=== PATIENT | female | born 1990 | race Caucasian/White ===

== ENCOUNTER 2020-04-16 12:07 | Emergency (ER) | payer OTHER ==
[~2020-04-16] VITALS: Ht 157.5 cm; Wt 54.4 kg
[2020-04-16] MEDS ORDERED: ADDERALL 20 MG20 MG PO (12:24)
[2020-04-16 12:42] LABS: URINE BLOOD NEGATIVE (Negative); URINE CLARITY CLEAR; URINE COLOR YELLOW; URINE GLUCOSE-RANDOM* NEGATIVE (Negative); URINE KETONES NEGATIVE (Negative); URINE NITRITE-REFLEX NEGATIVE (Negative); URINE PROTEIN (DIPSTICK) TRACE (Negative); URINE SPECIFIC GRAVITY 1.015 (1.005-1.035); URINE UROBILINOGEN 0.2 E.U./dl (0.2-1.0)
[2020-04-16 12:45] LABS: URINE LEUKOCYTES-REFLEX 1+ (Negative)
[2020-04-16 12:46] LABS: ICTOTEST (BILI CONFIRMATORY) Negative (Negative); URINE BILIRUBIN NEGATIVE (Negative)
[2020-04-16 13:01] LABS: CASTS None Seen /LPF (None Seen); CRYSTALS None Seen /LPF (None Seen); MUCUS 4-6 Moderate strn/LPF (None Seen); SQUAMOUS 4-10 Moderate /LPF (0-3)
[2020-04-16 13:02] LABS: BACTERIA-REFLEX 1-9 Few /HPF (None Seen); URINE RBC None Seen /HPF (0-2); URINE WBC-REFLEX 6-15 Few /HPF (0-5)
[2020-04-16 13:15] LABS: ABSOLUTE NEUTROPHILS 4.7 thou/uL (1.4-8.2); BASOPHILS 0.4 % (0.0-2.0); HEMATOCRIT 42.8 % (37.0-47.0); HEMOGLOBIN 14.4 gm/dL (12.0-15.0); LYMPHOCYTES 27.4 % (24.0-44.0); MCH 28.5 pg (26.0-34.0); MCHC 33.7 g/dL (28.0-37.0); MCV 84.7 fL (80.0-100.0); MONOCYTES 9.8 % (1.0-8.0); PLATELET COUNT 282 thou/uL (150-400); POLYS 61.4 % (36.0-66.0); RBC 5.06 mil/uL (4.20-5.00); RDW 12.7 % (10.5-14.5); WBC 7.7 thou/uL (4.0-11.0)
[2020-04-16 13:26] LABS: CALCIUM 8.6 mg/dL (8.5-10.1); POTASSIUM 3.7 mmol/L (3.5-5.1)
[2020-04-16 13:31] LABS: ALBUMIN 4.3 g/dL (3.4-5.0); DIRECT BILIRUBIN 0.1 mg/dL (<0.1-0.2); TOTAL BILIRUBIN 0.4 mg/dL (0.2-1.0); TOTAL PROTEIN 7.9 g/dL (6.4-8.2)
[2020-04-16] MEDS ORDERED: TRAMADOL 50 MG50 MG PO (16:06)
[2020-04-16] MEDS ORDERED: ONDANSETRON ODT8 MG PO (16:06)
[2020-04-16] MEDS ORDERED: NAPROSYN500 MG PO (16:06)
[2020-04-16 16:25] VITALS: BP 122/70
== END 2020-04-16 16:25 | disposition home or self-care (01) ==
LOC: ER 12:07
PROVIDERS: Emergency Medicine
DX: N83.202 Unspecified ovarian cyst, left side (principal); R10.31 Right lower quadrant pain; R42 Dizziness and giddiness; F17.210 Nicotine dependence, cigarettes, uncomplicated; Z90.49 Acquired absence of other specified parts of digestive tract; Z79.899 Other long term (current) drug therapy; Z88.1 Allergy status to other antibiotic agents; Z88.8 Allergy status to other drugs, medicaments and biological substances; Z88.2 Allergy status to sulfonamides

== ENCOUNTER 2020-05-11 04:31 | Emergency (ER) | payer OTHER ==
[~2020-05-11] VITALS: Ht 157.5 cm; Wt 54.4 kg
[~2020-05-11 04:31] MED LIST: ADDERALL 20 MG20 MG PO; NAPROSYN500 MG PO; ONDANSETRON ODT8 MG PO; TRAMADOL 50 MG50 MG PO
[2020-05-11 05:10] LABS: URINE BILIRUBIN NEGATIVE (Negative); URINE BLOOD 3+ (Negative); URINE CLARITY CLOUDY; URINE COLOR RED; URINE GLUCOSE-RANDOM* NEGATIVE (Negative); URINE KETONES NEGATIVE (Negative); URINE LEUKOCYTES-REFLEX TRACE (Negative); URINE NITRITE-REFLEX NEGATIVE (Negative); URINE PROTEIN (DIPSTICK) 1+ (Negative); URINE SPECIFIC GRAVITY >= 1.030 (1.005-1.035); URINE UROBILINOGEN 0.2 E.U./dl (0.2-1.0)
[2020-05-11 05:28] LABS: ABSOLUTE NEUTROPHILS 6.4 thou/uL (1.4-8.2); BASOPHILS 0.4 % (0.0-2.0); EOSINOPHILS 1.6 % (0.0-3.0); HEMATOCRIT 39.7 % (37.0-47.0); HEMOGLOBIN 13.4 gm/dL (12.0-15.0); LYMPHOCYTES 25.2 % (24.0-44.0); MCH 28.7 pg (26.0-34.0); MCHC 33.8 g/dL (28.0-37.0); MCV 84.7 fL (80.0-100.0); MONOCYTES 9.1 % (1.0-8.0); PLATELET COUNT 271 thou/uL (150-400); POLYS 63.7 % (36.0-66.0); RBC 4.68 mil/uL (4.20-5.00); RDW 12.2 % (10.5-14.5)
[2020-05-11 05:49] LABS: CALCIUM 9.2 mg/dL (8.5-10.1); POTASSIUM 3.5 mmol/L (3.5-5.1)
[2020-05-11 05:50] LABS: MAGNESIUM 1.8 mg/dL (1.8-2.4)
[2020-05-11 06:14] LABS: BACTERIA-REFLEX None Seen /HPF (None Seen); CASTS None Seen /LPF (None Seen); CRYSTALS None Seen /LPF (None Seen); MUCUS 4-6 Moderate strn/LPF (None Seen); SQUAMOUS 0-3 Few /LPF (0-3); URINE RBC >20 Many /HPF (0-2)
[2020-05-11 06:25] VITALS: BP 100/57
[2020-05-11] MEDS ORDERED: NORCO 5-325 TA1 EAC2 PO (07:15)
[2020-05-11] MEDS ORDERED: NAPROSYN500 MG PO (07:15)
== END 2020-05-11 08:18 | disposition home or self-care (01) ==
LOC: ER 04:31
PROVIDERS: Emergency Medicine
DX: N92.0 Excessive and frequent menstruation with regular cycle (principal); F17.210 Nicotine dependence, cigarettes, uncomplicated; Z90.49 Acquired absence of other specified parts of digestive tract; Z90.89 Acquired absence of other organs; Z79.899 Other long term (current) drug therapy; Z88.1 Allergy status to other antibiotic agents; Z88.2 Allergy status to sulfonamides; Z88.8 Allergy status to other drugs, medicaments and biological substances